=== PATIENT | female | born 1965 | race Hispanic/Latino ===

== ENCOUNTER 2018-03-22 15:50 | Outpatient (CLI) | payer OTHER | END 2018-03-22 15:51 | disposition home or self-care (01) | LOC: BICMAMMO 15:50 | PROVIDERS: ATTEND Obstetrics & Gynecology | DX: Z12.31 Encounter for screening mammogram for malignant neoplasm of breast (principal); Z80.3 Family history of malignant neoplasm of breast | CPT/HCPCS: 77063; 77067 ==

== ENCOUNTER 2018-06-14 13:00 | Outpatient (CLI) | payer OTHER | END 2018-06-14 13:01 | disposition home or self-care (01) | LOC: DTY/OP 13:00 | PROVIDERS: ATTEND Surgery | DX: E66.01 Morbid (severe) obesity due to excess calories (principal) | CPT/HCPCS: 97802 ==

== ENCOUNTER 2018-08-16 13:00 | Inpatient (IN) | payer OTHER ==
[2018-08-16 13:32] VITALS: BMI 41.4
[2018-08-28 12:47] LABS: Hemoglobin A1c 5.4 % (4.0-6.0)
[2018-08-28] MEDS ORDERED: CEFAZOLIN/Water 2 GM/20 ML SYRINGE ONE (12:51)
[2018-08-28] MEDS ORDERED: Heparin 5,000 UNITS/ML VIAL ONE (12:51)
[2018-08-28] MEDS ORDERED: Bupivacaine/Epinephrine 0.25% 30 ML VIAL ONE (13:35)
[2018-08-28] MEDS ORDERED: Fentanyl 100 MCG/2 ML VIAL ONE ×2 (14:01→15:33)
[2018-08-28] MEDS ORDERED: Glycopyrrolate 0.2 MG/ML 5 ML SYRINGE ONE (14:53)
[2018-08-28] MEDS ORDERED: Dexamethasone 20 MG/5 ML VIAL ONE (14:53)
[2018-08-28] MEDS ORDERED: PROPOFOL 200 MG/20 ML VIAL ONE (14:53)
[2018-08-28] MEDS ORDERED: ePHEDrine/0.9% NaCl/PF SYRINGE 50 mg/10 ml ONE (14:53)
[2018-08-28] MEDS ORDERED: Ondansetron HCl/PF 4 MG/2 ML Vial ONE (14:53)
[2018-08-28] MEDS ORDERED: Dextrose 50% Abboject 50 ML SYRINGE SLOW IVP PRN (15:12)
[2018-08-28] MEDS ORDERED: Hydrocodone-Acetamin 15 ML UDCUP PO PRN (15:12)
[2018-08-28] MEDS ORDERED: diphenhydrAMINE 50 MG/ML VIAL IVP PRN ×2 (15:12→15:46)
[2018-08-28] MEDS ORDERED: Ondansetron HCl/PF 4 MG/2 ML Vial IVP PRN ×2 (15:12→15:25)
[2018-08-28] MEDS ORDERED: Dextrose 5% in Water 1,000 ML IV PRN (15:12)
[2018-08-28] MEDS ORDERED: hydrALAZINE 20 MG/ML VIAL SLOW IVP PRN (15:12)
[2018-08-28] MEDS ORDERED: Promethazine HCl 25 MG/ML VIAL SLOW IVP PRN (15:25)
[2018-08-28] MEDS ORDERED: Meperidine HCl/PF 25 MG/ML VIAL SLOW IVP PRN (15:25)
[2018-08-28] MEDS ORDERED: Promethazine HCl 25 MG/ML VIAL IM PRN ×2 (15:25→15:46)
[2018-08-28] MEDS ORDERED: Ketorolac Tromethamine 30 MG/ML VIAL IVP PRN (15:25)
[2018-08-28] MEDS ORDERED: Naloxone HCl 0.4 mg/ml Vial IV PRN (15:46)
[2018-08-28] MEDS ORDERED: diphenhydrAMINE 25 MG CAP PO PRN (15:46)
[2018-08-28] MEDS ORDERED: fentaNYL Citrate/PF 2,000 MCG in Sodium Chloride 0.9% 60 ML IV PRN (15:46)
[2018-08-28] MEDS ORDERED: Zolpidem Tartrate 5 MG TAB PO PRN (15:46)
[2018-08-28] MEDS ORDERED: diphenhydrAMINE 50 MG/ML VIAL IM PRN (15:46)
[2018-08-28] MEDS ORDERED: Communication Order-Pharmacy FS SCH (16:00)
[2018-08-28] MEDS: Ondansetron HCl/PF 4 MG/2 ML Vial IVP PRN ×2 (17:20→23:23)
[2018-08-28] MEDS: D5 1/2 NS w/20 mEq KCL 1,000 ML IV SCH ×2 (17:20→23:24)
[2018-08-28] MEDS: Promethazine HCl 25 MG/ML VIAL IM PRN (18:38)
--- NOTE | 2018-08-28 19:03 | OP ---
PREOPERATIVE DIAGNOSIS: Morbid obesity. SURGEON: Amarjit Vicente M.D. PROCEDURE PERFORMED: Laparoscopic sleeve gastrectomy with intraoperative esophagogastroscopy. INDICATIONS: The patient is a 53-year-old female, who is morbidly obese and attempted multiple weigh t loss programs without success. FINDINGS: A 38-[place] bougie used. PROCEDURE IN DETAIL: After informed consent was obtained, the patient was taken to the operating shaan m and given general endotracheal anesthesia. She was placed in supine position. Her abdomen was pre pped and draped in usual fashion. Local anesthesia infiltrated subcutaneously and deep. A 12 mm inc ision was performed approximately 8 inches below the xiphoid slightly to the left. Veress needle ins erted. Drop test performed. Pneumoperitoneum was created to a pressure of 15 mmHg. A 0-degree lapa roscope inserted under direct vision. A [employer] liver retractor inserted. Left lobe of the liver retracted superiorly. The pylorus identified, a 12 mm port placed on the right beneath it and two 12 s placed left subcostal. The omentum was taken off the greater curvature 5 cm from the pylorus utili zing the LigaSure. Short gastrics divided with the LigaSure. Left crura defined with the LigaSure. A 38-[place] bougie inserted directed into the antrum. The linear 60 mm green load stapler used to d ivide the antrum to the bougie, gold load along the bougie, and a series of blues through the angle o f His. Intraoperative endoscopy was performed. The video endoscope inserted under direct vision and advanced into the sleeve. Staple line inspected and there was no bleeding. Staple line then tested by inflating the new stomach with pressurized air under water. There was no air leak. Stomach deco mpressed. Scope removed. The remnant stomach removed from the abdomen through the left lateral port site. The fascia closed with 0 Vicryl suture and GraNee needle. Trocars and retractors removed. T he skin closed with interrupted 4-0 Rapide. Dermabond applied. The patient tolerated the procedure well and was transferred to recovery in good condition. Sponge and needle count verified correct x2.
[2018-08-28] MEDS: CEFAZOLIN/Water 2 GM/20 ML SYRINGE SLOW IVP SCH (20:51)
[2018-08-29] MEDS: Promethazine HCl 25 MG/ML VIAL IM PRN (02:22)
[2018-08-29] MEDS: CEFAZOLIN/Water 2 GM/20 ML SYRINGE SLOW IVP SCH (04:49)
[2018-08-29 05:11] LABS: #Monocytes 0.4 thou/uL (0.11-0.59); %Eosinophils 0.1 % (0.0-10.0); %Lymphocytes 9.5 % (21.0-51.0); %Monocytes 3.5 % (0.0-10.0); %Neutrophils 86.9 % (42.0-75.0); Hemoglobin 13.6 g/dL (12.0-16.0); Mean Corpuscular HGB CONC 32.9 g/dL (32.0-36.0); Mean Corpuscular Volume 97.2 fL (78.0-98.0); Mean Platelet Volume 7.5 fL (7.4-10.4); Platelet Count 238 thou/uL (130-400); RBC Distribution Width 11.8 % (11.5-14.5); Red Blood Cell (RBC) Count 4.24 mill/uL (4.20-5.40); White Blood Cell (WBC) Count 10.4 thou/uL (4.8-10.8)
[2018-08-29 05:20] LABS: Anion Gap 14 mmol/L (10-20); BUN (Urea Nitrogen) 6 mg/dL (9.8-20.1); Calc. Creatinine Clearance 161 mL/min (70-130); Calcium 9.1 mg/dL (7.8-10.44); Carbon Dioxide 21 mmol/L (22-29); Chloride 102 mmol/L (98-107); Estimated GFR-MDRD Greater than 90; Glucose 183 mg/dL (70-105); Potassium 4.1 mmol/L (3.5-5.1); Sodium 133 mmol/L (136-145)
[2018-08-29] MEDS: Enoxaparin Sodium 40 MG/0.4 ML SYRINGE SC SCH (07:52)
[2018-08-29] MEDS: Pantoprazole 40 MG VIAL IVP SCH (07:52)
[2018-08-29] MEDS: D5 1/2 NS w/20 mEq KCL 1,000 ML IV SCH ×2 (07:53→13:25)
--- NOTE | 2018-08-29 11:34 | RAD ---
LIMITED UPPER GI: 08/29/2018 HISTORY: Post gastric sleeve procedure. FINDINGS: Assistant Clinical Nurse Manager images demonstrate multiple surgical clips in the upper abdomen, related to recent gastric slee ve procedure, and 15 mL of Gastrografin was administered p.o. Contrast would not traverse through th e region of the GE junction, and there was persistent holdup within the distal esophagus. The patien t then began vomiting. The procedure was terminated at this point. IMPRESSION: 1. Holdup of contrast at the level of the gastroesophageal junction, which could be related to edema in this region. The patient began vomiting, and the procedure was terminated at this point. Findings were discussed with Dr. Vicente at the termination of this procedure. The patient was transpo rted back to her hospital room. POS: [facility]
[2018-08-29] MEDS: Acetaminophen 1,000 MG in Premix Bag 1 BAG IVPB SCH (13:26)
[2018-08-29] MEDS: Ketorolac Tromethamine 30 MG/ML VIAL IVP SCH (13:26)
--- NOTE | 2018-08-29 13:33 | PRG ---
DATE OF SERVICE: 08/29/2018 SUBJECTIVE: The patient reports that she gets a little nauseated with the pain medicine. She does n ot feel that bad. She has some pain on the left upper quadrant incision. PHYSICAL EXAMINATION: VITAL SIGNS: Temperature is 97.5, pulse 64, blood pressure 132/76. The incisions look okay. Her abdomen is soft, nondistended. LABORATORY DATA: White count is 10.4, H&H 13 and 41, platelet count 238. Electrolytes showed sodium 133, CO2 of 21, BUN 6, glucose 183. Her x-ray showed holdup at the EG junction related probably to the repair of the hiatal hernia. Sinc e she is not really have any nausea, the plan is to go ahead and let her try some sips of clear liqui ds. We will keep her another night. Hopefully, will be able to go home tomorrow.
[2018-08-30] MEDS: Acetaminophen 1,000 MG in Premix Bag 1 BAG IVPB SCH ×3 (00:34→05:23)
[2018-08-30] MEDS: D5 1/2 NS w/20 mEq KCL 1,000 ML IV SCH ×2 (00:34→06:12)
[2018-08-30] MEDS: Ketorolac Tromethamine 30 MG/ML VIAL IVP SCH ×3 (00:34→08:09)
[2018-08-30 07:44] VITALS: BP 120/77; TEMP 97.9
[2018-08-30] MEDS ORDERED: Hydrocodone-Acetamin 15 ML UDCUP PO PRN (07:52)
[2018-08-30] MEDS: Pantoprazole 40 MG VIAL IVP SCH (08:09)
[2018-08-30] MEDS: Enoxaparin Sodium 40 MG/0.4 ML SYRINGE SC SCH (08:14)
--- NOTE | 2018-08-30 12:12 | DIS ---
DISCHARGE DIAGNOSES: Morbid obesity and hiatal hernia. PROCEDURES DURING ADMISSION: Laparoscopic sleeve gastrectomy, repair of hiatal hernia, intraoperativ e esophagogastroscopy and postoperative Gastrografin swallow. HOSPITAL COURSE: The patient was admitted, taken to the operating room where she underwent a sleeve gastrectomy, repair of hiatal hernia. Postoperatively, she had a little bit of trouble with fluids. Gastrografin swallow showed narrowing at the EG junction that is resolved. She is tolerating liquid s well now. She is staying hydrated. Pain is controlled on p.o. meds. She is discharged home on hy drocodone and Zofran. She will follow up with me in 2 weeks.
== END 2018-08-30 10:50 | disposition home or self-care (01) | DRG 621 ==
LOC: SURG A 08-28 11:29 → SURG B 08-28 16:47
PROVIDERS: ADMIT Surgery; ATTEND Surgery
PROC: 0DB64Z3 Excision of Stomach, Percutaneous Endoscopic Approach, Vertical (ICD-10-PCS; principal; 2018-08-28)
PROC: 0BQT4ZZ Repair Diaphragm, Percutaneous Endoscopic Approach (ICD-10-PCS; 2018-08-28)
PROC: 0DJ08ZZ Inspection of Upper Intestinal Tract, Via Natural or Artificial Opening Endoscopic (ICD-10-PCS; 2018-08-28)
DX: E66.01 Morbid (severe) obesity due to excess calories (principal); K44.9 Diaphragmatic hernia without obstruction or gangrene; Z79.899 Other long term (current) drug therapy; Z91.018 Allergy to other foods
CPT/HCPCS: 36415; 74241; 80048; 83036; 85025; 88307; 88312; C9113; J0131; J1100; J1644; J1650; J1885; J2405; J2550; J2704; J3010; J7050

== ENCOUNTER 2018-08-16 13:03 | Outpatient (CLI) | payer OTHER ==
[2018-08-16 14:40] LABS: #Basophils 0.1 thou/uL (0.0-0.2); #Eosinphils 0.1 thou/uL (0.0-0.7); #Lymphocytes 2.7 thou/uL (1.20-3.40); #Monocytes 0.5 thou/uL (0.11-0.59); #Neutrophils 3.2 thou/uL (1.40-6.50); %Basophils 1.3 % (0.0-1.0); %Eosinophils 1.5 % (0.0-10.0); %Lymphocytes 41.1 % (21.0-51.0); %Monocytes 7.7 % (0.0-10.0); %Neutrophils 48.4 % (42.0-75.0); Hemoglobin 14.9 g/dL (12.0-16.0); Mean Corpuscular HGB CONC 33.4 g/dL (32.0-36.0); Mean Corpuscular Hemoglobin 32.6 pg (27.0-31.0); Mean Corpuscular Volume 97.6 fL (78.0-98.0); Mean Platelet Volume 7.2 fL (7.4-10.4); Platelet Count 259 thou/uL (130-400); RBC Distribution Width 11.8 % (11.5-14.5); Red Blood Cell (RBC) Count 4.59 mill/uL (4.20-5.40); White Blood Cell (WBC) Count 6.7 thou/uL (4.8-10.8)
[2018-08-16 15:00] LABS: ALT (SGPT) 61 U/L (8-55); AST (SGOT) 35 U/L (5-34); Albumin 4.3 g/dL (3.5-5.0); Alkaline Phosphatase 59 U/L (40-150); Anion Gap 10 mmol/L (10-20); BUN (Urea Nitrogen) 9 mg/dL (9.8-20.1); Bilirubin, Direct 0.3 mg/dL (0.1-0.3); Bilirubin, Total 0.7 mg/dL (0.2-1.2); Calc. Creatinine Clearance 0 mL/min (70-130); Calcium 9.5 mg/dL (7.8-10.44); Carbon Dioxide 27 mmol/L (22-29); Chloride 105 mmol/L (98-107); Estimated GFR-MDRD Greater than 90; Globulin 3.7 g/dL (2.4-3.5); Glucose 92 mg/dL (70-105); Potassium 3.5 mmol/L (3.5-5.1); Sodium 138 mmol/L (136-145)
--- NOTE | 2018-08-16 16:08 | RAD ---
CHEST TWO VIEWS: 08/16/18 HISTORY: Preop. FINDINGS: No comparison. The cardiac silhouette and pulmonary vasculature are unremarkable. Mediastinum is midline. No conflue nt air space consolidation, pneumothorax. or pleural fluid. IMPRESSION: No active cardiopulmonary abnormalities are demonstrated. POS: [facility]
--- NOTE | 2018-08-18 21:19 | EKG ---
Test Reason : Blood Pressure : / mmHG Vent. Rate : 060 BPM Atrial Rate : 060 BPM P-R Int : 180 ms QRS Dur : 120 ms QT Int : 458 ms P-R-T Axes : 043 -19 -03 degrees QTc Int : 458 ms Normal sinus rhythm Left ventricular hypertrophy with QRS widening Abnormal ECG When compared with ECG of 05-FEB-2015 13:32, No significant change was found Confirmed by Nghia LEAHY ([id number]) on 08/18/2018 9:19:10 PM Referred By: SOLOMON Confirmed By:Nghia LEAHY
== END 2018-08-16 13:04 | disposition home or self-care (01) ==
LOC: LABBT 13:03
PROVIDERS: ATTEND Surgery
DX: Z01.818 Encounter for other preprocedural examination (principal); E66.01 Morbid (severe) obesity due to excess calories
CPT/HCPCS: 71046; 80053; 80076; 85025; 87081; 93005; 93010

== ENCOUNTER 2023-04-26 08:03 | Outpatient (CLI) | payer BC | END 2023-04-26 08:04 | disposition home or self-care (01) | LOC: BICRAD 08:03 | PROVIDERS: ATTEND Family Medicine | DX: R07.81 Pleurodynia (principal); R70.0 Elevated erythrocyte sedimentation rate | CPT/HCPCS: 71046 ==